=== PATIENT | female | born 1985 | race Hispanic/Latino ===

== ENCOUNTER 2019-11-09 13:15 | Observation (INO) | payer OTHER ==
[~2019-11-09] VITALS: Ht 157.5 cm; Wt 108.8 kg
[2019-11-09] MEDS ORDERED: METRONIDAZOLE 500MG/100ML BAG 100 ML ONE (14:05)
[2019-11-09] MEDS ORDERED: CEFTRIAXONE SODIUM 1 GM ONE (14:05)
[2019-11-09] MEDS ORDERED: DEXTROSE 5 %-0.45 % NACL 1,000 ML IV ONE (14:05)
[2019-11-09 14:11] LABS: BASOPHILS % (AUTO) 0.2 % (0.0-5.0); EOSINOPHILS % (AUTO) 0.8 % (0.0-8.0); HEMATOCRIT 37.7 % (36-48); LYMPHOCYTES % (AUTO) 15.2 % (21.0-51.0); MEAN CORPUSCULAR HEMOGLOBIN 29.5 pg (27.0-33.0); MEAN CORPUSCULAR HGB CONC 32.4 g/dL (32.0-36.0); MEAN CORPUSCULAR VOLUME 91.3 fL (79-99); MONOCYTES % (AUTO) 3.7 % (3.0-13.0); NEUTROPHILS % (AUTO) 79.7 % (40.0-77.0); PLATELET COUNT (AUTO) 381 K/uL (130-400); RED BLOOD CELL COUNT(AUTO) 4.13 MIL/uL (4.00-5.50); RED CELL DISTRIBUTION WIDTH 13.7 % (11.0-15.5); WHITE BLOOD COUNT (AUTO) 12.1 K/uL (4.8-10.8)
[2019-11-09] MEDS ORDERED: MAG HYDROX/AL HYDROX/SIMETH ES 30 ML SUSP UDCUP PO PRN (14:15)
[2019-11-09] MEDS ORDERED: DIPHENHYDRAMINE HCL 25 MG CAPSULE PO PRN (14:15)
[2019-11-09] MEDS ORDERED: ONDANSETRON HCL 4 MG/2 ML VIAL IVP PRN (14:15)
[2019-11-09] MEDS ORDERED: ACETAMINOPHEN 325 MG TAB PO PRN (14:15)
[2019-11-09] MEDS ORDERED: ONDANSETRON HCL 4 MG/2 ML VIAL ONE (14:19)
[2019-11-09 14:23] LABS: CREATININE 1.2 mg/dL (0.5-1.5); POTASSIUM 3.7 mmol/L (3.5-5.1)
[2019-11-09 14:26] LABS: APPEARANCE,URINE Clear (CLEAR); BILIRUBIN,URINE Negative (NEGATIVE); COLOR,URINE Yellow (YELLOW); GLUCOSE, URINE (UA) Negative (NEGATIVE); KETONES,URINE Negative (NEGATIVE); LEUKOCYTE ESTERASE ,URINE Small (NEGATIVE); NITRATE,URINE Negative (NEGATIVE); OCCULT BLOOD,URINE Negative (NEGATIVE); PH,URINE 5.5 (5.0-8.0); PROTEIN,URINE Negative (NEGATIVE)
[2019-11-09 14:27] LABS: ALBUMIN 3.1 g/dL (3.5-5.0); BILIRUBIN,TOTAL 0.2 mg/dL (0.2-1.0); TOTAL PROTEIN, SERUM 8.2 g/dL (6.0-8.3)
[2019-11-09] MEDS ORDERED: DIATR MEGLU/DIATRIZOATE SODIUM 30 ML BOTTLE ONE (14:29)
[2019-11-09 14:40] LABS: BILIRUBIN,DIRECT 0.1 mg/dL (0.0-0.3)
[2019-11-09 14:42] LABS: BACTERIA,URINE Few /HPF (None Seen); MUCUS,URINE Few LPF (None Seen); RBC,URINE None Seen /HPF (0-1)
[2019-11-09 15:15] VITALS: BP 115/75
--- NOTE | 2019-11-09 15:48 | NUR ---
QUANT. HCG QUANTITATIVE HCG WAS RETURNED POSITIVE WITH A 26. NO ANSWER AT THIS TIME FROM DR. ECKERT, WILL TRY AGAIN AT A LATER TIME.
--- NOTE | 2019-11-09 16:20 | NUR ---
POS. HCG DR. ECKERT WAS NOTIFIED OF POSITIVE URINE HCG ON THIS PATIENT. CT THAT WAS ORDERED BY DR. ECKERT WAS PUT ON HOLD UNTIL BLOOD HCG CAN BE DRAWN.
[2019-11-09 16:28] LABS: ALBUMIN 2.9 g/dL (3.5-5.0); BILIRUBIN,DIRECT 0.1 mg/dL (0.0-0.3); BILIRUBIN,TOTAL 0.2 mg/dL (0.2-1.0); TOTAL PROTEIN, SERUM 7.9 g/dL (6.0-8.3)
[2019-11-09] MEDS: DEXTROSE 5 %-0.45 % NACL 1,000 ML IV SCH (17:36)
--- NOTE | 2019-11-09 18:05 | NUR ---
SURGEON DR. ECKERT WOULD LIKE FOR DR. STOKES TO COME SEE THE PATIENT TODAY. ASKED THIS NURSE IF I COULD GET THE [employer] STILL OPERATOR TO CONTACT DR. STOKES. [employer] STILL OPERATOR NOTIFIED ME THAT DR. STOKES WAS IN SURGERY AT THIS TIME. EMERGENCY TECHNICIAN WAS CALLED BUT THERE WAS NO ANSWER. WILL ENDORSE TO ONCOMING NURSE.
[2019-11-09 19:48] VITALS: BP 118/70
[2019-11-09] MEDS ORDERED: METRONIDAZOLE 500MG/100ML BAG 100 ML IVPB SCH (22:00)
[2019-11-10 00:31] VITALS: BP 102/56
[2019-11-10 03:56] VITALS: BP 108/69
[2019-11-10 05:03] LABS: CREATININE 1.1 mg/dL (0.5-1.5); POTASSIUM 3.5 mmol/L (3.5-5.1)
[2019-11-10] MEDS: DEXTROSE 5 %-0.45 % NACL 1,000 ML IV SCH (06:49)
[2019-11-10 07:41] VITALS: BP 111/62
[2019-11-10 11:27] VITALS: BP 115/64
--- NOTE | 2019-11-10 11:44 | NUR ---
INITIAL Patient lives with spouse. No home services or DME. Independent. Drives. PCP is Dr. Jone Wolf. [facility]acy [facility]. DCP is home. Addendum: 11/10/19 at 1147 by JOANNA MCMILLAN SS Amended: Links added.
[2019-11-10] MEDS ORDERED: ACETAMINOPHEN 325 MG TAB PO PRN (12:15)
[2019-11-10] MEDS: CEFTRIAXONE SODIUM 1 GM IVP SCH (12:26)
[2019-11-10] MEDS ORDERED: KETOROLAC TROMETHAMINE 15MG/ML IV PRN (12:30)
--- NOTE | 2019-11-10 13:20 | NUR ---
JHONNY VILLA FOR DR STOKES CAME BY TO SEE PATIENT OCHOA CONSULT. PER EVALUATION PLACED ORDER TO HAVE OBGYN SEE PATIENT FOR FURTHER EVAL . CALL PLACED AND INFORMED DR BRUMFIELD ON CONSULT. ORDERGIVEN FOR QUANTATIVE HCG SERUM..AND PER MD WILL COME BY THIS AFTERNOON TO SEE PATIENT
[2019-11-10 16:07] VITALS: BP 107/56
[2019-11-10 19:41] VITALS: BP 120/77
--- NOTE | 2019-11-10 22:38 | NUR ---
NOTE PATIENT REPORTS HAVING NAUSEA. OFFERED HER MEDICATION AND EMESIS BAG. MEDICATED WITH ZOFRAN.
--- NOTE | 2019-11-10 23:40 | NUR ---
NOTE PATIENT REPORTS THAT NAUSEA IS RELIEVED.
[2019-11-11 00:30] VITALS: BP 130/80
[2019-11-11 04:22] VITALS: BP 112/69
[2019-11-11 05:52] LABS: BASOPHILS % (AUTO) 0.4 % (0.0-5.0); EOSINOPHILS % (AUTO) 0.8 % (0.0-8.0); HEMATOCRIT 34.5 % (36-48); LYMPHOCYTES % (AUTO) 20.9 % (21.0-51.0); MEAN CORPUSCULAR HEMOGLOBIN 29.4 pg (27.0-33.0); MEAN CORPUSCULAR HGB CONC 32.2 g/dL (32.0-36.0); MEAN CORPUSCULAR VOLUME 91.3 fL (79-99); MONOCYTES % (AUTO) 7.7 % (3.0-13.0); NEUTROPHILS % (AUTO) 69.9 % (40.0-77.0); PLATELET COUNT (AUTO) 341 K/uL (130-400); RED BLOOD CELL COUNT(AUTO) 3.78 MIL/uL (4.00-5.50); RED CELL DISTRIBUTION WIDTH 13.5 % (11.0-15.5); WHITE BLOOD COUNT (AUTO) 10.6 K/uL (4.8-10.8)
[2019-11-11 06:10] LABS: ALBUMIN 2.6 g/dL (3.5-5.0); BILIRUBIN,TOTAL 0.3 mg/dL (0.2-1.0); POTASSIUM 4.1 mmol/L (3.5-5.1); TOTAL PROTEIN, SERUM 7.5 g/dL (6.0-8.3)
[2019-11-11 07:28] VITALS: BP 118/63
[2019-11-11] MEDS: CEFTRIAXONE SODIUM 1 GM IVP SCH (10:36)
[2019-11-11] MEDS: DEXTROSE 5 %-0.45 % NACL 1,000 ML IV SCH (10:37)
[2019-11-11 10:47] VITALS: BP 106/54
== END 2019-11-11 18:48 | disposition home or self-care (01) ==
LOC: EDH 13:15 → EDHIP 15:25 → 4DH 15:27
PROVIDERS: ADMIT Internal Medicine; ATTEND Internal Medicine
DX: N99.89 Other postprocedural complications and disorders of genitourinary system (principal); R10.84 Generalized abdominal pain; J45.909 Unspecified asthma, uncomplicated; Z90.710 Acquired absence of both cervix and uterus; Y84.8 Other medical procedures as the cause of abnormal reaction of the patient, or of later complication, without mention of misadventure at the time of the procedure; Y76.8 Miscellaneous obstetric and gynecological devices associated with adverse incidents, not elsewhere classified; Y92.89 Other specified places as the place of occurrence of the external cause
CPT/HCPCS: 36415 ×3; 76801; 76817; 80048 ×2; 80053; 80076 ×2; 81001; 81025; 84702; 84703; 85025 ×2; 96365; 96375; 96376; 99281; 99285; G0378 ×10; J0696 ×3; J2405 ×2; J3490 ×3; J7042 ×3; Q9963

== ENCOUNTER 2019-11-11 20:12 | Emergency (ER) | payer OTHER | END 2019-11-11 21:12 | disposition home or self-care (01) | LOC: EDH 20:12 | DX: R10.9 Unspecified abdominal pain (principal); J45.909 Unspecified asthma, uncomplicated | CPT/HCPCS: 99281 ==

== ENCOUNTER 2020-03-23 10:10 | Emergency (ER) | payer OTHER ==
[2020-03-23] MEDS ORDERED: SODIUM CHLORIDE 0.9% 1000ML 1,000 ML IV ONE (10:11)
[2020-03-23 11:11] LABS: BASOPHILS % (AUTO) 0.2 % (0.0-5.0); EOSINOPHILS % (AUTO) 0.6 % (0.0-8.0); HEMATOCRIT 40.2 % (36-48); LYMPHOCYTES % (AUTO) 18.3 % (21.0-51.0); MEAN CORPUSCULAR HEMOGLOBIN 29.2 pg (27.0-33.0); MEAN CORPUSCULAR HGB CONC 33.3 g/dL (32.0-36.0); MEAN CORPUSCULAR VOLUME 87.6 fL (79-99); MONOCYTES % (AUTO) 7.2 % (3.0-13.0); NEUTROPHILS % (AUTO) 73.3 % (40.0-77.0); PLATELET COUNT (AUTO) 383 K/uL (130-400); RED BLOOD CELL COUNT(AUTO) 4.59 MIL/uL (4.00-5.50); RED CELL DISTRIBUTION WIDTH 12.7 % (11.0-15.5); WHITE BLOOD COUNT (AUTO) 10.9 K/uL (4.8-10.8)
[2020-03-23 11:12] LABS: APPEARANCE,URINE CLEAR (CLEAR); BILIRUBIN,URINE SMALL (NEGATIVE); COLOR,URINE YELLOW (YELLOW); GLUCOSE, URINE (UA) NEGATIVE (NEGATIVE); KETONES,URINE 5 mg/dL (NEGATIVE); LEUKOCYTE ESTERASE ,URINE SMALL (NEGATIVE); NITRATE,URINE NEGATIVE (NEGATIVE); OCCULT BLOOD,URINE NEGATIVE (NEGATIVE); PH,URINE 5.5 (5.0-8.0); PROTEIN,URINE TRACE mg/dL (NEGATIVE); UROBILINOGEN,URINE 0.2 mg/dL (0.2-1.0)
[2020-03-23 11:22] LABS: BACTERIA,URINE Many /HPF (None Seen); CREATININE 0.7 mg/dL (0.5-1.5); POTASSIUM 3.6 mmol/L (3.5-5.1)
[2020-03-23 11:23] LABS: MUCUS,URINE Many LPF (None Seen); SQUAMOUS EPITHELIAL CELL,UR Few /HPF (0-2)
[2020-03-23] MEDS ORDERED: CEFTRIAXONE SODIUM 1 GM ONE (11:54)
== END 2020-03-23 12:25 | disposition home or self-care (01) ==
LOC: EDH 10:10
DX: O21.0 Mild hyperemesis gravidarum (principal); Z3A.13 13 weeks gestation of pregnancy
CPT/HCPCS: 36415; 80048; 81001; 85025; 87088; 96361; 96374; 99283; J0696; J7030

== ENCOUNTER 2020-04-05 17:17 | Emergency (ER) | payer OTHER ==
[2020-04-05] MEDS ORDERED: SODIUM CHLORIDE 0.9% 1000ML 1,000 ML IV ONE (17:18)
[2020-04-05] MEDS ORDERED: ONDANSETRON HCL 4 MG/2 ML VIAL ONE (17:44)
[2020-04-05 17:49] LABS: BASOPHILS % (AUTO) 0.2 % (0.0-5.0); EOSINOPHILS % (AUTO) 0.4 % (0.0-8.0); HEMATOCRIT 37.9 % (36-48); LYMPHOCYTES % (AUTO) 18.1 % (21.0-51.0); MEAN CORPUSCULAR HEMOGLOBIN 29.7 pg (27.0-33.0); MEAN CORPUSCULAR HGB CONC 33.5 g/dL (32.0-36.0); MEAN CORPUSCULAR VOLUME 88.6 fL (79-99); MONOCYTES % (AUTO) 5.3 % (3.0-13.0); NEUTROPHILS % (AUTO) 75.8 % (40.0-77.0); PLATELET COUNT (AUTO) 389 K/uL (130-400); RED BLOOD CELL COUNT(AUTO) 4.28 MIL/uL (4.00-5.50); RED CELL DISTRIBUTION WIDTH 12.9 % (11.0-15.5); WHITE BLOOD COUNT (AUTO) 9.7 K/uL (4.8-10.8)
[2020-04-05 18:08] LABS: CREATININE 0.9 mg/dL (0.5-1.5); POTASSIUM 3.7 mmol/L (3.5-5.1)
[2020-04-05 18:12] LABS: ALBUMIN 2.8 g/dL (3.5-5.0); BILIRUBIN,TOTAL 0.1 mg/dL (0.2-1.0)
[2020-04-05] MEDS ORDERED: ACETAMINOPHEN EXTRA STRENGTH 500 MG TABLET ONE (19:45)
[2020-04-05] MEDS ORDERED: FAMOTIDINE/PF 20 MG/2 ML VIAL IV ONE (19:45)
[2020-04-05 19:51] LABS: APPEARANCE,URINE Clear (CLEAR); BILIRUBIN,URINE Negative (NEGATIVE); GLUCOSE, URINE (UA) Negative (NEGATIVE); KETONES,URINE Trace mg/dL (NEGATIVE); LEUKOCYTE ESTERASE ,URINE Negative (NEGATIVE); NITRATE,URINE Negative (NEGATIVE); OCCULT BLOOD,URINE Negative (NEGATIVE); PROTEIN,URINE Trace mg/dL (NEGATIVE)
[2020-04-05 19:52] LABS: COLOR,URINE YELLOW (YELLOW)
[2020-04-05 19:59] LABS: BACTERIA,URINE Rare /HPF (None Seen); MUCUS,URINE Many LPF (None Seen); RBC,URINE None Seen /HPF (0-1); WBC,URINE None Seen /HPF (0-1)
== END 2020-04-05 20:25 | disposition home or self-care (01) ==
LOC: EDH 17:17
DX: O21.9 Vomiting of pregnancy, unspecified (principal); O9A.212 Injury, poisoning and certain other consequences of external causes complicating pregnancy, second trimester; S00.83XA Contusion of other part of head, initial encounter; O26.892 Other specified pregnancy related conditions, second trimester; R55 Syncope and collapse; E86.0 Dehydration; O99.512 Diseases of the respiratory system complicating pregnancy, second trimester; J45.909 Unspecified asthma, uncomplicated; Z98.890 Other specified postprocedural states; Z3A.15 15 weeks gestation of pregnancy; W18.09XA Striking against other object with subsequent fall, initial encounter; Y93.89 Activity, other specified; Y92.89 Other specified places as the place of occurrence of the external cause; Y99.8 Other external cause status
CPT/HCPCS: 80053; 36415; 81001; 83690; 85025; 93005; 96361; 96374; 96375; 99284; J2405; J3490; J7030

== ENCOUNTER 2020-09-05 02:30 | Observation (INO) | payer OTHER ==
[~2020-09-05] VITALS: Ht 162.6 cm; Wt 110.2 kg
[2020-09-05 03:27] LABS: APPEARANCE,URINE Clear (CLEAR); BILIRUBIN,URINE Negative (NEGATIVE); COLOR,URINE Yellow (YELLOW); GLUCOSE, URINE (UA) Negative (NEGATIVE); KETONES,URINE Negative (NEGATIVE); LEUKOCYTE ESTERASE ,URINE Moderate (NEGATIVE); NITRATE,URINE Negative (NEGATIVE); OCCULT BLOOD,URINE Negative (NEGATIVE); PROTEIN,URINE Negative (NEGATIVE); UROBILINOGEN,URINE 0.2 mg/dL (0.2-1.0)
[2020-09-05 03:45] LABS: BACTERIA,URINE Few /HPF (None Seen); RBC,URINE 0-1 /HPF (0-1)
[2020-09-05] MEDS ORDERED: CITRIC ACID/SODIUM CITRATE 30 ML UDCUP PO SCH (04:00)
[2020-09-05] MEDS ORDERED: LACTATED RINGERS 1000ML 1,000 ML IV PRN (04:00)
[2020-09-05 04:07] LABS: HEMATOCRIT 34.8 % (36-48); MEAN CORPUSCULAR HEMOGLOBIN 28.1 pg (27.0-33.0); MEAN CORPUSCULAR HGB CONC 31.6 g/dL (32.0-36.0); MEAN CORPUSCULAR VOLUME 88.8 fL (79-99); RED BLOOD CELL COUNT(AUTO) 3.92 MIL/uL (4.00-5.50); RED CELL DISTRIBUTION WIDTH 13.4 % (11.0-15.5); WHITE BLOOD COUNT (AUTO) 8.5 K/uL (4.8-10.8)
[2020-09-05] MEDS ORDERED: OMEP20TA2 PO (05:54)
[2020-09-05] MEDS ORDERED: AUD IH (05:55)
[2020-09-05] MEDS ORDERED: PREN1TAB80 PO (05:55)
[2020-09-05] MEDS ORDERED: CALC500T13 PO (05:56)
[2020-09-06 05:11] LABS: HEPATITIS Bs ANTIGEN SCREEN P Negative (Negative)
== END 2020-09-05 08:25 | disposition home or self-care (01) ==
LOC: EDH 02:30 → LDH 02:31
PROVIDERS: ADMIT Specialist; ATTEND Specialist
DX: O62.9 Abnormality of forces of labor, unspecified (principal); O09.523 Supervision of elderly multigravida, third trimester; O09.813 Supervision of pregnancy resulting from assisted reproductive technology, third trimester; O99.513 Diseases of the respiratory system complicating pregnancy, third trimester; J45.909 Unspecified asthma, uncomplicated; Z98.51 Tubal ligation status; Z3A.37 37 weeks gestation of pregnancy
CPT/HCPCS: 36415; 59025; 81001; 85027; 86592; 86850; 86900; 86901; 87088; 87340; 96360; 96361; 99284; G0378 ×6; J7120

== ENCOUNTER 2020-09-06 11:24 | Inpatient (IN) | payer OTHER ==
[~2020-09-06] VITALS: Ht 160 cm; Wt 112.5 kg
[~2020-09-06 11:24] MED LIST: AUD IH; CALC500T13 PO; OMEP20TA2 PO; PREN1TAB80 PO
[2020-09-06] MEDS ORDERED: LACTATED RINGERS 1000ML 1,000 ML IV PRN (14:45)
[2020-09-06] MEDS ORDERED: AMPICILLIN 2GM+NS 100ML 100 ML IV SCH (15:00)
[2020-09-06] MEDS ORDERED: NALOXONE HCL 0.4 MG/1 ML ML IV PRN (15:00)
[2020-09-06] MEDS ORDERED: PROMETHAZINE HCL 25 MG/ML 1ML AMPULE IM PRN (15:00)
[2020-09-06] MEDS ORDERED: LACTATED RINGERS 500 ML 500 ML IV PRN (15:00)
[2020-09-06] MEDS ORDERED: MEPERIDINE-PF 50 MG/ML SYG IVP PRN (15:00)
[2020-09-06] MEDS ORDERED: EPHEDRINE SULFATE 50 MG/ML AMPULE IVP PRN (15:00)
[2020-09-06] MEDS ORDERED: LACTATED RINGERS 1000ML 1,000 ML IV ONE (15:08)
[2020-09-06 15:09] LABS: HEMATOCRIT 33.8 % (36-48); MEAN CORPUSCULAR HEMOGLOBIN 29.1 pg (27.0-33.0); MEAN CORPUSCULAR HGB CONC 32.2 g/dL (32.0-36.0); MEAN CORPUSCULAR VOLUME 90.1 fL (79-99); RED BLOOD CELL COUNT(AUTO) 3.75 MIL/uL (4.00-5.50); RED CELL DISTRIBUTION WIDTH 13.6 % (11.0-15.5)
[2020-09-06 15:46] LABS: AMPHET/METH SCREEN,URINE NEGATIVE (NEGATIVE); BARBITURATE SCREEN, URINE NEGATIVE (NEGATIVE); BENZODIAZEPINES SCREEN,URINE NEGATIVE (NEGATIVE); CANNABINOID SCREEN,URINE NEGATIVE (NEGATIVE); COCAINE SCREEN,URINE NEGATIVE (NEGATIVE); OPIATE SCREEN,URINE NEGATIVE (NEGATIVE); PHENCYCLIDINE SCREEN,URINE NEGATIVE (NEGATIVE)
[2020-09-06] MEDS: AMPICILLIN 1GM+NS 50ML 50 ML IV SCH ×2 (19:23→23:03)
[2020-09-06] MEDS ORDERED: ROPIVACAINE 0.2% 100ML VIAL 100 ML EP SCH (21:30)
[2020-09-06] MEDS ORDERED: CITRIC ACID/SODIUM CITRATE 30 ML UDCUP PO SCH (23:00)
[2020-09-06] MEDS ORDERED: FAMOTIDINE 20MG TAB PO PRN (23:00)
[2020-09-07] MEDS: AMPICILLIN 1GM+NS 50ML 50 ML IV SCH ×2 (03:18→06:59)
[2020-09-07] MEDS ORDERED: ACETAMINOPHEN 500 MG TABLET PO SCH (03:30)
[2020-09-07] MEDS ORDERED: ACETAMINOPHEN 500 MG TABLET ONE (03:33)
[2020-09-07] MEDS ORDERED: OXYTOCIN-LR 20 UNITS/1000 ML 1,000 ML IV SCH ×2 (07:00→10:45)
[2020-09-07] MEDS ORDERED: WITCH HAZEL 1 PAD TP PRN (10:00)
[2020-09-07] MEDS ORDERED: DIPH,PERTUSS(ACELL),TET VAC/PF 0.5 ML VIAL IM PRN (10:00)
[2020-09-07] MEDS ORDERED: MEASLES/MUMPS/RUBELLA VACCINE, LIVE 0.5 ML/VIAL SQ PRN (10:00)
[2020-09-07] MEDS ORDERED: LANOLIN 30GM OINTMENT TP PRN (10:00)
[2020-09-07] MEDS ORDERED: ACETAMINOPHEN 325 MG TAB PO PRN (10:00)
[2020-09-07] MEDS ORDERED: BENZOCAINE/LANOLIN/ALOE VERA 60 ML AEROSOL TP PRN (10:00)
[2020-09-07] MEDS: IBUPROFEN 600 MG TABLET PO PRN ×2 (10:35→18:21)
[2020-09-07] MEDS: ACETAMINOPHEN WITH CODEINE 1 TAB TAB PO PRN ×2 (11:01→15:18)
[2020-09-07 12:39] VITALS: BP 143/89
[2020-09-07] MEDS ORDERED: FLU VACC QS2020-21(6MOS UP)/PF 60 MCG/0.5 ML ML IM ONE (13:45)
[2020-09-07] MEDS ORDERED: FLU VACC QS2020-21(6MOS UP)/PF 60 MCG/0.5 ML ML IM SCH (14:15)
[2020-09-07 16:27] VITALS: BP 140/94
[2020-09-07 20:10] VITALS: BP 116/72
[2020-09-07] MEDS: DOCUSATE SODIUM 100 MG CAP PO SCH (22:07)
[2020-09-07 23:20] VITALS: BP 123/78
[2020-09-08] MEDS: IBUPROFEN 600 MG TABLET PO PRN ×2 (00:12→06:36)
[2020-09-08 03:30] VITALS: BP 133/76
[2020-09-08 07:28] VITALS: BP 140/71
[2020-09-08] MEDS: DOCUSATE SODIUM 100 MG CAP PO SCH (09:13)
[2020-09-08 11:40] VITALS: BP 144/85
== END 2020-09-08 15:05 | disposition home or self-care (01) | DRG 807 ==
LOC: EDH 11:24 → LDH 11:25 → OBSVTOIN 11:25 → WSH 09-07 12:35
PROVIDERS: ADMIT Specialist; ATTEND Specialist
PROC: 10E0XZZ Delivery of Products of Conception, External Approach (ICD-10-PCS; principal; 2020-09-07)
PROC: 0KQM0ZZ Repair Perineum Muscle, Open Approach (ICD-10-PCS; 2020-09-07)
PROC: 3E0R3BZ Introduction of Anesthetic Agent into Spinal Canal, Percutaneous Approach (ICD-10-PCS; 2020-09-07)
PROC: 00HU33Z Insertion of Infusion Device into Spinal Canal, Percutaneous Approach (ICD-10-PCS; 2020-09-07)
PROC: 3E0234Z Introduction of Serum, Toxoid and Vaccine into Muscle, Percutaneous Approach (ICD-10-PCS; 2020-09-07)
PROC: 3E0134Z Introduction of Serum, Toxoid and Vaccine into Subcutaneous Tissue, Percutaneous Approach (ICD-10-PCS; 2020-09-07)
PROC: 3E02340 Introduction of Influenza Vaccine into Muscle, Percutaneous Approach (ICD-10-PCS; 2020-09-07)
DX: O60.14X0 Preterm labor third trimester with preterm delivery third trimester, not applicable or unspecified (principal); Z37.0 Single live birth; O70.1 Second degree perineal laceration during delivery; Z23 Encounter for immunization; Z3A.36 36 weeks gestation of pregnancy
CPT/HCPCS: 36415; 59025; 76805; 80305; 81001; 85027; 86592; 86850; 86900; 86901; 87088; 87340; 96360; 96361; A4314; A4606; G0378; J0290; J2590; J2795; J7120; Q2035

== ENCOUNTER 2020-09-10 03:23 | Emergency (ER) | payer OTHER ==
[2020-09-10] MEDS ORDERED: DiphenhydrAMINE HCL 50 MG/ML VIAL ONE (03:43)
[2020-09-10] MEDS ORDERED: SOLU-MEDROL 125MG VIAL ONE (03:43)
[2020-09-10] MEDS ORDERED: FAMOTIDINE 20MG VIAL IV ONE (03:44)
[2020-09-10] MEDS ORDERED: ACETAMINOPHEN 325 MG TAB ONE (05:52)
== END 2020-09-10 06:10 | disposition home or self-care (01) ==
LOC: EDH 03:23
DX: L50.0 Allergic urticaria (principal); J45.909 Unspecified asthma, uncomplicated; Z88.8 Allergy status to other drugs, medicaments and biological substances; Z98.51 Tubal ligation status
CPT/HCPCS: 96374; 96375; 99284; J1200; J2930; J3490

== ENCOUNTER 2021-08-16 10:37 | Emergency (ER) | payer BC, OTHER ==
[~2021-08-16] VITALS: Ht 162.6 cm; Wt 108.9 kg
[2021-08-16 11:22] LABS: APPEARANCE,URINE Clear (CLEAR); BILIRUBIN,URINE Negative (NEGATIVE); COLOR,URINE Yellow (YELLOW); GLUCOSE, URINE (UA) Negative (NEGATIVE); KETONES,URINE Negative (NEGATIVE); LEUKOCYTE ESTERASE ,URINE Moderate (NEGATIVE); NITRATE,URINE Negative (NEGATIVE); OCCULT BLOOD,URINE Negative (NEGATIVE); PH,URINE 5.5 (5.0-8.0); PROTEIN,URINE Negative (NEGATIVE); UROBILINOGEN,URINE 0.2 mg/dL (0.2-1.0)
[2021-08-16 11:26] LABS: BASOPHILS % (AUTO) 0.3 % (0.0-5.0); EOSINOPHILS % (AUTO) 0.9 % (0.0-8.0); HEMATOCRIT 37.5 % (36-48); LYMPHOCYTES % (AUTO) 24.3 % (21.0-51.0); MEAN CORPUSCULAR HEMOGLOBIN 28.7 pg (27.0-33.0); MEAN CORPUSCULAR HGB CONC 31.2 g/dL (32.0-36.0); MEAN CORPUSCULAR VOLUME 91.9 fL (79-99); MONOCYTES % (AUTO) 5.2 % (3.0-13.0); PLATELET COUNT (AUTO) 361 K/uL (130-400); RED BLOOD CELL COUNT(AUTO) 4.08 MIL/uL (4.00-5.50); WHITE BLOOD COUNT (AUTO) 9.5 K/uL (4.8-10.8)
[2021-08-16 11:29] LABS: WBC,URINE 0-1 /HPF (0-1)
[2021-08-16 11:30] LABS: BACTERIA,URINE Rare /HPF (None Seen); SQUAMOUS EPITHELIAL CELL,UR Rare /HPF (0-2)
[2021-08-16 11:33] LABS: CREATININE 0.9 mg/dL (0.5-1.5); POTASSIUM 3.7 mmol/L (3.5-5.1)
[2021-08-16 11:39] LABS: ALBUMIN 3.4 g/dL (3.5-5.0); BILIRUBIN,TOTAL 0.2 mg/dL (0.2-1.0); TOTAL PROTEIN, SERUM 7.9 g/dL (6.0-8.3)
[2021-08-16] MEDS ORDERED: FLUC150T PO (12:19)
[2021-08-16] MEDS ORDERED: MACR100 PO (12:19)
[2021-08-16 12:34] VITALS: BP 124/92
== END 2021-08-16 12:36 | disposition home or self-care (01) ==
LOC: EDH 10:37
DX: N39.0 Urinary tract infection, site not specified (principal); J45.909 Unspecified asthma, uncomplicated; Z79.899 Other long term (current) drug therapy
CPT/HCPCS: 36415; 80053; 81001; 81025; 85025; 87088

== ENCOUNTER 2021-11-20 12:43 | Observation (INO) | payer BC ==
[~2021-11-20] VITALS: Ht 162.6 cm; Wt 114.8 kg
[2021-11-20] VITALS (19 sets, daily range): BP systolic 113–140; BP diastolic 58–88
[~2021-11-20 12:43] MED LIST changes: +FLUC150T PO; +MACR100 PO
[2021-11-20 14:55] LABS: HEMATOCRIT 33.9 % (36-48); MEAN CORPUSCULAR HEMOGLOBIN 27.8 pg (27.0-33.0); MEAN CORPUSCULAR HGB CONC 30.7 g/dL (32.0-36.0); MEAN CORPUSCULAR VOLUME 90.6 fL (79-99); PLATELET COUNT (AUTO) 411 K/uL (130-400); RED BLOOD CELL COUNT(AUTO) 3.74 MIL/uL (4.00-5.50); RED CELL DISTRIBUTION WIDTH 13.3 % (11.0-15.5); WHITE BLOOD COUNT (AUTO) 8.1 K/uL (4.8-10.8)
[2021-11-20] MEDS ORDERED: DEXAMETHASONE SOD PHOSPHATE 10MG/ML 1ML VIAL ONE (14:59)
[2021-11-20] MEDS ORDERED: SUCCINYLCHOLINE 200MG/10ML SYR ONE (14:59)
[2021-11-20] MEDS ORDERED: GLYCOPYRROLATE 1 MG/5 ML SYRINGE ONE (14:59)
[2021-11-20] MEDS ORDERED: LIDOCAINE PF 100MG/5ML (2%) SYRINGE 5ML ONE (14:59)
[2021-11-20] MEDS ORDERED: MIDAZOLAM HCL 1 MG/ML 2ML VIAL ONE (15:00)
[2021-11-20] MEDS ORDERED: NEOSTIGMINE 5MG/5ML SYR IV ONE (15:00)
[2021-11-20] MEDS ORDERED: ONDANSETRON 4MG INJ ONE (15:00)
[2021-11-20] MEDS ORDERED: FENTANYL CITRATE PF 50 MCG/1 ML 2ML VIAL ONE (15:00)
[2021-11-20] MEDS ORDERED: PROPOFOL 10 MG/ML 20ML VIAL IV ONE (15:00)
[2021-11-20] MEDS ORDERED: ROCURONIUM 10MG/1ML SYR 10 MG/ML ML ONE (15:00)
[2021-11-20] MEDS ORDERED: [UNRECOGNIZED DRUG - CODE] PO (15:41)
[2021-11-20] MEDS ORDERED: GUAI-1210 PO (15:42)
[2021-11-20] MEDS: 0.9%NACL 1000ML 1,000 ML IV SCH ×2 (16:05→16:56)
[2021-11-20] MEDS ORDERED: MEPERIDINE-PF 25 MG/ML SYG ONE (16:32)
[2021-11-20] MEDS ORDERED: OXYTOCIN 10 USP UNITS/ML ONE (16:36)
== END 2021-11-20 21:35 | disposition home or self-care (01) ==
LOC: WSH 12:43
PROVIDERS: ADMIT Specialist; ATTEND Specialist
DX: N92.0 Excessive and frequent menstruation with regular cycle (principal); Z20.822 Contact with and (suspected) exposure to COVID-19; D50.0 Iron deficiency anemia secondary to blood loss (chronic); J45.909 Unspecified asthma, uncomplicated; E66.9 Obesity, unspecified; Z87.59 Personal history of other complications of pregnancy, childbirth and the puerperium; Z98.51 Tubal ligation status; Z79.899 Other long term (current) drug therapy
CPT/HCPCS: 36415; 84702; 85027; 86850; 86900; 86901; 87635; 94760; A4351; G0378; J0330; J1100; J2001; J2175; J2250; J2405; J2590; J2704; J2710; J3010; J3490

== ENCOUNTER 2024-05-24 11:04 | Emergency (ER) | payer BC ==
[~2024-05-24] VITALS: Ht 165.1 cm; Wt 107.0 kg
[~2024-05-24 11:04] MED LIST changes: -FLUC150T PO; -MACR100 PO; +[UNRECOGNIZED DRUG - CODE] PO
[2024-05-24] MEDS ORDERED: IOHEXOL-350 75 ML VIAL IV ONE (11:37)
[2024-05-24] MEDS: ondanSETRON 4MG INJ IVP ONE (11:40)
[2024-05-24] MEDS: morPHINE 2 MG SYG IVP ONE (11:40)
[2024-05-24 11:44] LABS: BASOPHILS # (AUTO) 0.02 K/uL (0.00-0.20); BASOPHILS % (AUTO) 0.3 % (0.0-5.0); EOSINOPHILS # (AUTO) 0.21 K/uL (0.00-0.70); EOSINOPHILS % (AUTO) 3.1 % (0.0-8.0); HEMATOCRIT 40.1 % (36-48); IMMATURE GRANULOCYTE ABSOLUTE 0.01 K/uL (0-1); LYMPHOCYTES # (AUTO) 1.7 K/uL (1.0-4.8); LYMPHOCYTES % (AUTO) 25.4 % (21.0-51.0); MEAN CORPUSCULAR HEMOGLOBIN 29.4 pg (27.0-33.0); MEAN CORPUSCULAR HGB CONC 32.7 g/dL (32.0-36.0); MEAN CORPUSCULAR VOLUME 90.1 fL (79-99); MONOCYTES # (AUTO) 0.4 K/uL (0.1-1.0); MONOCYTES % (AUTO) 6.5 % (3.0-13.0); NEUTROPHILS # (AUTO) 4.4 K/uL (1.8-7.7); NEUTROPHILS % (AUTO) 64.6 % (40.0-77.0); PLATELET COUNT (AUTO) 420 K/uL (130-400); RED BLOOD CELL COUNT(AUTO) 4.45 MIL/uL (4.00-5.50); RED CELL DISTRIBUTION WIDTH 12.9 % (11.0-15.5); WHITE BLOOD COUNT (AUTO) 6.8 K/uL (4.8-10.8)
[2024-05-24 11:45] LABS: APPEARANCE,URINE CLEAR (CLEAR); BILIRUBIN,URINE NEGATIVE (NEGATIVE); COLOR,URINE LIGHT-YELLOW (YELLOW); GLUCOSE, URINE (UA) NEGATIVE (NEGATIVE); KETONES,URINE NEGATIVE (NEGATIVE); LEUKOCYTE ESTERASE ,URINE 75 Leu/uL (NEGATIVE); NITRATE,URINE NEGATIVE (NEGATIVE); OCCULT BLOOD,URINE NEGATIVE (NEGATIVE); PROTEIN,URINE NEGATIVE (NEGATIVE); UROBILINOGEN,URINE 0.2 mg/dL (0.2-1.0)
[2024-05-24 11:52] LABS: ADD UA MICROSCOPIC YES
[2024-05-24 11:53] LABS: CREATININE 0.8 mg/dL (0.5-1.0); POTASSIUM 3.7 mmol/L (3.5-5.1)
[2024-05-24 12:02] LABS: RBC,URINE 0-1 /HPF (0-1); SQUAMOUS EPITHELIAL CELL,UR RARE /HPF (0-2)
[2024-05-24] MEDS: 0.9%NACL 1000ML 1,000 ML IV ONE (13:10)
[2024-05-24] MEDS: cefTRIAXone 1G VIAL IVPB ONE (14:05)
[2024-05-24] MEDS ORDERED: SULF1TAB42 PO (14:29)
[2024-05-24] MEDS ORDERED: ONDA-243 PO (14:29)
[2024-05-24] MEDS ORDERED: KETO10TA2 PO (14:29)
[2024-05-24 14:54] VITALS: BP 113/75; PULSE 75; RESP 11; TEMP 98; O2SAT 96
== END 2024-05-24 14:51 | disposition home or self-care (01) ==
LOC: EDH 11:04
DX: K57.32 Diverticulitis of large intestine without perforation or abscess without bleeding (principal); J45.909 Unspecified asthma, uncomplicated; Z98.51 Tubal ligation status; Z79.899 Other long term (current) drug therapy
CPT/HCPCS: 99284; 74177; 96365; 96361; 96375; 80048; 84703; 85025; 87086; 83605; 81001; 36415; 84145; J2270; J0696; J2405; Q9967

== ENCOUNTER 2024-11-21 20:56 | Emergency (ER) | payer BC ==
[~2024-11-21] VITALS: Ht 162.6 cm; Wt 103.9 kg
[~2024-11-21 20:56] MED LIST changes: +KETO10TA2 PO; +ONDA-243 PO; +SULF1TAB42 PO
[2024-11-21] MEDS: ketOROlac 60 MG VIAL (30MG/ML) IM ONE (22:12)
--- NOTE | 2024-11-21 23:18 | ERN ---
ED Note History of Present Illness Stated Complaint: LEFT ANKLE INJURY Chief Complaint: Ankle Problem Time Seen by MD: 21:04 Time Seen by Midlevel: 21:04 Dictation: The patient is a 47-year-old female with a history of asthma and hysterectomy who presents to the emergency department with complaints of left ankle pain after accidentally falling into a who and twisting her ankle onset prior to arrival. Patient denies any head trauma or any other injuries. Allergies: Coded Allergies: No Known Drug Allergies (Verified Allergy, Unknown, 11/09/19) Progestins (Unverified Allergy, Unknown, 03/23/20) Home Meds Active Scripts Ondansetron (Ondansetron Odt) 4 Mg Tab.rapdis, 4 MG PO BID for 7 Days, #14 TAB Prov:KARO DUMONT 05/24/24 Ketorolac Tromethamine (Ketorolac Tromethamine) 10 Mg Tablet, 10 MG PO BID for 5 Days, #10 TAB Prov:KARO DUMONT 05/24/24 Sulfamethoxazole/Trimethoprim (Bactrim Ds Tablet) 800 Mg-160 Mg Tablet, 1 TAB PO BID for 7 Days, #14 TAB 0 Refills Prov:KARO DUMONT 05/24/24 Reported Medications Iron,Carbonyl/Ascorbic Acid (Fe C Tablet) 1 Each Tablet, 1 EACH PO DAILY, TAB 11/20/21 Calcium Carbonate (Tums 500 mg Chew Tab) 1 Tab Tab.chew, PO AD, TAB.CHEW 09/05/20 Vits W-Ca,Fe,FA(<1Mg) ( Vitamins) 1 Each Tablet, 1 EACH PO DAILY, TAB 09/05/20 Albuterol Sulfate (Proventil/Ventolin Neb Soln) 2.5 Mg/0.5 Ml Soln, IH AD for wheezing, ML 09/05/20 Omeprazole Magnesium (Prilosec Otc) 20 Mg Tablet.dr, 20 MG PO AD, TAB 09/05/20 Past Medical History Past Medical History: Asthma, Diverticulitis Surgical History: BTL Social History: Other RN Note Reviewed/Agreed w/PFSH: Yes Review of System Dictation Constitutional: Negative for fever,chills, and weight loss Eyes: Negative for injury, pain,redness, and discharge ENT: Negative for injury,pain or swelling Cardiovascular: Negative for chest pain, palpitations, and edema Respiratory: Negative for shortness of breath, cough, and wheezing, Abdomen/GI: Negative for abdominal pain, nausea, vomiting, diarrhea, and constipation Back: Negative for injury and pain : Negative for injury, bleeding and discharge MS/Extremity: Negative for injury and deformity positive for left ankle pain Skin: Negative for rash, and discoloration Neuro: Negative for headache, weakness, numbness, tingling, and seizure Psych: Negative for suicide ideation, homicidal ideation, and hallucinations Initial Vital Sign VS Vital Signs Date Time Temp Pulse Resp B/P (MAP) Pulse Ox O2 Delivery O2 Flow Rate FiO2 11/21/24 20:58 97.9 83 20 122/77 Room Air 11/21/24 22:53 100 0 21 Physical Exam Dictation Vital Signs reviewed General Appearance: Alert, oriented x 3, no acute distress, well developed, nourished. Head and Face: non-traumatic. Eyes: PERRL, pink conjunctivas, eyelid no trauma, anterior chamber with arcus senilis. Ears: Pinnas intact and no signs of trauma or erythema ear canals clear and no discharge TM no erythema Nose: No discharge, no bleeding. Oropharynx: Mouth normal, tongue pink. pharynx clear,no erythema, tonsils no exudates, no abscesses noted, mucous membrane moist Neck: Supple, non-tender, no thyromegaly, no masses, no JVD, no bruits Breast:Deferred Chest:No tenderness, no crepitus, no paradoxical movement, no retractions Lungs:Clear, well-ventilated, symmetric, no rales, no wheezing, no rhonchi, no stridor, good breath sounds bilaterally Heart: Regular rate, regular rhythm, no murmur, no gallops Vascular: no peripheral edema, Abdomen: Soft, positive bowel sounds, nondistended, no guarding, nontender, no rebound, no masses no hepatomegaly, no splenomegaly, no Man's sign, no hernias. Rectal: Deferred Genital: Deferred Neurological: Normal speech, motor function intact, sensory function intact Musculoskeletal: Neck nontender, full range of motion, back nontender, full r emmett of motion, Extremities: nontender, full range of motion , left ankle swelling, limited range of motion due to pain, cap refill less than 2 seconds, dorsalis pedis +bilaterally Skin: Color pink, dry, no turgor, no rash, no lacerations, no abrasions, no contusions. Lymphatic: Deferred Results (Laboratory/Radiology) Labs Reviewed?: Yes ED Course ED Course Orders Procedure Category Date Status Time Ketorolac 60mg/2ml PHA 11/21/24 Complete (Toradol 60mg/2ml) 21:30 Ankle Comp 3vws Lt RAD 11/21/24 Taken 21:14 Ankle Stirrup Splint [email or web address].ER 11/21/24 In Process 23:07 Crutches W/Training CPOE 11/21/24 Transmitted (Er) 23:07 Current Medications Medications (Trade) Dose Ordered Sig/Jamaal Route PRN Reason Start Time Stop Time Status Last Admin Dose Admin Ketorolac Tromethamine (toRADol 60MG/ 2ML) 60 mg ONCE ONCE IM 11/21/24 21:30 11/21/24 21:31 DC 11/21/24 22:12 Vital Signs Date Time Temp Pulse Resp B/P (MAP) Pulse Ox O2 Delivery O2 Flow Rate FiO2 11/21/24 22:53 77 16 109/69 100 Room Air* 0 21 11/21/24 20:58 97.9 83 20 122/77 Room Air Medical Decision Making MDM The patient is a 47-year-old female with a history of asthma and hysterectomy who presents to the emergency department with complaints of left ankle pain after accidentally falling into a who and twisting her ankle onset prior to arrival. Patient denies any head trauma or any other injuries. X-ray showed soft tissue swelling, no obvious fracture. Patient will be splinted and instructed to follow up with orthopedic. Patient no acute distress, nontoxic appearance. Differential diagnosis: Ankle fracture, ankle sprain, ankle dislocation Need for hospitalization: Patient does not meet criteria for hospitalization. There are no social concerns with this patient. DX & DISP Disposition: Discharge Departure Impression: Primary Impression: Left ankle sprain Condition: Stable Additional Instructions: Please follow up with primary doctor in 1-2 days. If symptoms worsen please return to ER. Follow up with the orthopedic. FOLLOW-UP WITH PRIMARY CARE PROVIDER IN 1 TO 2 DAYS. TAKE MEDICATIONS DIRECTED HERE IN THE EMERGENCY ROOM. OKAY TO CONTINUE HOME MEDICATIONS UNLESS OTHERWISE DISCUSSED DURING YOUR VISIT IN THE EMERGENCY ROOM TODAY. RETURN TO YOUR NEAREST EMERGENCY ROOM IF SYMPTOMS WORSEN OR IF THERE IS NO IMPROVEMENT. CALL 911 IF YOU NEED IMMEDIATE ASSISTANCE. TAKE TYLENOL OR MOTRIN [id number] NEEDED AND IF NO CONTRAINDICATIONS ARE PRESENT. INCREASE ORAL HYDRATION. A WOUND CULTURE OR URINE CULTURE WAS ORDERED HERE IN THE EMERGENCY ROOM DEPARTMENT PLEASE FOLLOW-UP WITH PRIMARY CARE PROVIDER AND ADVISE THEM TO GET REPEAT PORTS FROM OUR FACILITY. IF YOU HAD ANY JIM WRAP/SPLINTS THAT WERE APPLIED HERE, PLEASE DO NOT REMOVE THEM UNTIL YOU SEE YOUR PRIMARY CARE OR SPECIALTY. Referrals: SELF,REFERRAL (PCP) JOSE CARLOS JERRY MD Time of Disposition: 23:17 I have reviewed the case, and I agree with, Diagnosis and Plan [facility] Nov 21, 2024 23:18
--- NOTE | 2024-11-21 23:28 | NUR ---
STIRRUP SPLINT WITH ORTHOGLASS, PADDING AND JIM WRAPS APPLIED TO L ANKLE, CAP REFILL < 2 SECONDS AFTER APPLICATION, CRUTCH TRAINING SUCCESSFUL WITH RETURN DEMONSTRATION
[2024-11-21 23:31] VITALS: BP 112/72; PULSE 70; RESP 16; TEMP 98.3; O2SAT 100
--- NOTE | 2024-11-22 08:43 | HMCIMG ---
Exam Type: ANKLE COMP 3VWS LT Clinical Information: fall, pain Comparison: None Findings: Routine views of the ankle reveal no evidence of acute fracture or dislocation. The ankle mortise is intact. There is soft tissue swelling over the lateral malleolus consistent with inversion injury. IMPRESSION: Evidence of inversion injury.
== END 2024-11-21 23:52 | disposition home or self-care (01) ==
LOC: EDH 20:56
DX: S93.492A Sprain of other ligament of left ankle, initial encounter (principal); J45.909 Unspecified asthma, uncomplicated; Z98.51 Tubal ligation status; Z79.899 Other long term (current) drug therapy; Z98.890 Other specified postprocedural states; W17.2XXA Fall into hole, initial encounter; Y93.89 Activity, other specified; Y92.89 Other specified places as the place of occurrence of the external cause; Y99.8 Other external cause status
CPT/HCPCS: 99284; 29515; 73610; 96372; J1885